=== PATIENT | male | born 1990 | race Caucasian/White ===

== ENCOUNTER 2022-02-01 15:34 | Emergency (ER) | payer BC, SELFPAY ==
[2022-02-01 15:46] VITALS: BP 142/59; PULSE 89; RESP 18; TEMP 37.9; O2SAT 100
--- NOTE | 2022-02-01 16:00 | ED.URI ---
HPI - URI/Sore Throat General Chief Complaint: Upper Respiratory Infection Stated Complaint: bilateral eye redness,sorethroat,chills Source: patient Mode of arrival: ambulatory Limitations: no limitations History of Present Illness HPI Narrative: This is a 31 year old male that is complaining of a cough short throat states that he took a COVID test one was positive and one was negative and he is not for sure what is going on it has been 2 days. Patient was at work and starting sweating and not feeling well has taken ibuprofen for pain and fever. some back pain as well MD elicited complaint: fever, sore throat and nasal congestion Related Data Allergies Allergy/AdvReac Type Severity Reaction Status Date / Time No Known Allergies Allergy Verified 02/01/22 15:53 Review of Systems Review of Systems: fever, sore throat, congestion and cough PMFSH Past Medical History Medical History (Updated 02/01/22 @ 16:18 by Guadalupe Monge NP) BMI 25.0-25.9,adult Encounter to establish care Hypertension Seasonal allergies Family History Family History (Updated 11/02/20 @ 15:02 by Nima Trujillo CMA) Father Hypertension Social History Social History Smoking status: Never smoker Alcohol intake: current Drinks per week: 1 Alcohol use details: Beer/Liquor Substance use: never Substance use type: does not use Exam Narrative: GENERAL illl-appearing, sweaty not well n no acute distress. HEAD:Normocephalic, atraumatic. EYES: PERRLA and EOMI. on right side ENT: Nares clear, no rhinorrhea or epistaxis. Mucous membranes moist. Pharyngeal erythema from coughing TM fluid on right side noted NECK: Supple. CHEST: Clear to auscultation. No respiratory distress. HEART: Regular rate and rhythm. normal peripheral pulses. ABDOMEN: Soft, nontender, nondistended, normal active bowel sounds. EXTREMITIES: Normal range of motion. No edema. SKIN: Warm, dry, no rash. NEURO: No focal deficits. Alert and oriented x3. Course Course Emergency Course: negative strep , influenza, and Covid Level of Care: Express Care Visit Vital Signs Vital signs: Vital Signs Temperature 100.2 F H 02/01/22 15:46 Pulse Rate 89 02/01/22 15:46 Respiratory Rate 18 09/13/22 15:46 Blood Pressure 142/59 H 02/01/22 15:46 Pulse Oximetry 100 02/01/22 15:46 Oxygen Delivery Room Air 02/01/22 15:46 Temperature 100.2 F H 02/01/22 15:46 Pulse Rate 89 02/01/22 15:46 Respiratory Rate 18 02/01/22 15:46 Blood Pressure 142/59 H 02/01/22 15:46 Pulse Oximetry 100 02/01/22 15:46 Oxygen Delivery Room Air 02/01/22 15:46 MDM - URI/Sore Throat Differential Diagnosis Differential diagnosis: Likely upper respiratory infection, otitis media, sinusitis, viral infection, bronchitis and influenza Lab Data Labs: Lab Results 02/01/22 Range/Units 15:50 POC SARS CoV-2 Ag Negative (Negative) Influenza A Screen Negative Reference Range: Negative Influenza B Screen Negative Reference Range: Negative Strep Screen Presumptive Negative *(Reference Range: Negative)* Discharge Plan Discharge Clinical Impression: Viral infection, Fever Patient Disposition: Home, Self-Care Condition: Stable Instructions: Antibiotic Form, Pharyngitis (ED), Upper Respiratory Infection (DC) Additional Instructions: viral illness may last between 7-12days; antibiotic is NOT recommended at this time. Recommend antihistamine such as Benadryl at night time and Claritin/Zyrtec/Sheila during the day Also, recommend symptomatic treatment includes: rest, fluids, and increase humidity of the air at home. Recommend Acetaminophen or nonsteroidal anti-inflammatory agents (NSAIDs) as directed in the b
[2022-02-01 19:33] LABS: SARS-CoV-2 RNA PCR Negative
== END 2022-02-01 16:24 | disposition home or self-care (01) ==
PROVIDERS: Emergency Provider Nurse Practitioner Family; PCP Nurse Practitioner Family
DX: B34.9 Viral infection, unspecified (principal); R50.9 Fever, unspecified; Z20.822 Contact with and (suspected) exposure to COVID-19; I10 Essential (primary) hypertension
CPT/HCPCS: 87081; 87426; 87804; 87880; 99213; C9803; G0463; U0003; U0005

== ENCOUNTER 2024-01-25 14:47 | Emergency (ER) | payer BC, SELFPAY ==
[2024-01-25 14:52] VITALS: BP 129/67; PULSE 87; RESP 16; TEMP 36.3; O2SAT 97
--- NOTE | 2024-01-25 14:57 | ED.URI ---
HPI - URI/Sore Throat General Chief Complaint: Upper Respiratory Infection Stated Complaint: cough Source: patient Mode of arrival: ambulatory Limitations: no limitations History of Present Illness HPI Narrative: 33-year-old male presented for complaint of cough for almost 3 weeks. Also reports occasional right ear pain. States the onset of symptoms he had fatigue and fever which have resolved. He denies shortness of breath, wheezing nausea, vomiting, diarrhea, or lethargy. He is taking Sudafed and Mucinex for symptoms. Related Data Allergies Allergy/AdvReac Type Severity Reaction Status Date / Time No Known Allergies Allergy Verified 01/25/24 14:57 Review of Systems Review of Systems: CONSTITUTIONAL: Denies body aches, fever, chills, or sweats. EYES: Denies visual changes, redness, or discharge. ENT: Denies rhinorrhea, congestion, sore throat, or otalgia. CARDIOVASCULAR: Denies chest pain, palpitations, or edema. RESPIRATORY: Reports cough, denies sob, wheezing. GASTROINTESTINAL: Denies abdominal pain, nausea, vomiting, or diarrhea. SKIN: Denies rash, itching, or wounds. MUSCULOSKELETAL: Denies back pain, joint pain, or myalgia. NEUROLOGIC: Denies headache, numbness, tingling, or weakness. All systems reviewed & are unremarkable except as noted in HPI and below PMFSH Past Medical History Medical History BMI 25.0-25.9,adult Bright red blood per rectum Encounter to establish care Hypertension Seasonal allergies Skin lesions Family History Family History Father Hypertension Social History Social History Smoking status: Never smoker Alcohol intake: current Alcohol use details: Beer/Liquor Occasionally Substance use: never Substance use type: does not use Lack of Transportation: No Lack of Food: Never True Current Housing: I Have Housing Concerned About Future Housing: No Difficulty Paying Gas/Electric Bills: No Difficulty Paying for Meds: No Currently Unemployed: No Education: Bachelor's Degree Difficulty w/ Childcare or Family Care: No Comments At time of signature, I have reviewed and agree with nursing past medical, surgical, social and family history unless otherwise noted. Please see nursing chart for further information. There is no relevant family history pertinent to the presenting complaint Exam Narrative: GENERAL: Well-appearing, in no acute distress. EYES: EOMI. No redness or drainage. Conjunctivae normal. ENT: Mucous membranes pink and moist. No rhinorrhea. Left TM normal; right TM erythematous, bulging and intact; canal not erythematous, no drainage Throat normal. Uvula midline. NECK: Normal AROM. Supple. CHEST: No respiratory distress. Lungs clear to all [place]. HEART: Regular rate and rhythm. No murmur appreciated. ABDOMEN: Soft, nontender, nondistended, normal active bowel sounds. EXTREMITIES: Normal range of motion. No edema. SKIN: Warm, dry, no rash. Capillary refill normal. Normal skin turgor. NEURO: Alert and oriented x3. Gait steady. PSYCH: Normal affect. Course Course Emergency Course: Patient is aware of diagnosis, understands and agrees to treatment plan. Anticipatory guidance given. Patient agrees to follow-up as directed and is aware of reasons to seek care at the emergency department. Portions of this record may have been created with voice recognition software Level of Care: Express Care Visit Vital Signs Vital signs: Vital Signs Temperature 97.3 F L 01/25/24 14:52 Pulse Rate 87 01/25/24 14:52 Respiratory Rate 16 01/25/24 14:52 Blood Pressure 129/67 01/25/24 14:52 Pulse Oximetry 97 01/25/24 14:52 Oxygen Delivery Room Air 01/25/24 14:52 Temperature 97.3 F L 01/25/24 14:52 Pulse Rate 87 01/25/24 14:52 Respiratory Rate 16
== END 2024-01-25 15:08 | disposition home or self-care (01) ==
PROVIDERS: Emergency Provider Nurse Practitioner Family; PCP Nurse Practitioner Family
DX: J40 Bronchitis, not specified as acute or chronic (principal); H66.001 Acute suppurative otitis media without spontaneous rupture of ear drum, right ear; I10 Essential (primary) hypertension
CPT/HCPCS: 99213; G0463